=== PATIENT | female | born 1970 | race Two or more races ===

== ENCOUNTER 2020-09-05 10:55 | Emergency (ER) | payer MEDICAID ==
[~2020-09-05] VITALS: Ht 162.6 cm; Wt 91.6 kg
[~2020-09-05 10:55] MED LIST: BISA-79 RC; CHOL20004 GT; CRAN3875 GT; LEVE1000 GT; LEVE500T9 PO; MAGN400O21 GT; TYL2T GT
--- NOTE | 2020-09-05 11:10 | NUR ---
[facility]RA FRM [facility] FOR EPISTAXIS X 30 MINS. NO ACTIVE BLEEDING NOTED. PATIENT A/OXO, MOANING, NON-VERBAL, ATTACHED TO THE RECEIVING BARN CUSTODIAN, NO DISTRESS NOTED.
--- NOTE | 2020-09-05 11:11 | NUR ---
Note sidone in EDM - 09/05/20 at 1232 by RODONOVANANCES ZEFERINO [facility] FOR EPISTAXIS X 30 MINS. NO ACTIVE BLEEDING NOTED. PATIENT A/O
[2020-09-05] MEDS ORDERED: OXYMETAZOLINE HCL NASAL SPRAY 30 ML BOTTLE NS ONE (11:31)
[2020-09-05] MEDS ORDERED: PHENYLEPHRINE 0.5% NASAL SPRAY 15 ML BOTTLE NS ONE (11:32)
--- NOTE | 2020-09-05 11:50 | NUR ---
LEFT NOSTRIL PACKED BY DR. DARBY WITH RHINO PACKING, PATIENT TOLERATED WELL. RHINO SECURED WITH TAPE. PATIENT GIVEN A MASK TO PREVENT PATIENT FROM PULLING OUT THE PACKING.
--- NOTE | 2020-09-05 12:42 | NUR ---
CALLED [facility] [place] [phone] WILL CALL US WITH ETA AND WHO THE TRANSPORT WILL BE.
--- NOTE | 2020-09-05 12:52 | NUR ---
[facility] CALLED FOR TRANSPORT ETA. 1400.
--- NOTE | 2020-09-05 13:42 | NUR ---
IVANA, DAUGHTER [phone], CALLED REGARDING STATUS, TOLD US TO CALL HER BACK WHEN SHES IS BEING TRANSFERRED BACK TO FACILITY
--- NOTE | 2020-09-05 14:33 | NUR ---
PATIENT A/OXO, BREATHING EVEN AND UNLABORED, NO SOB NOTED, NASAL PACKING INTACT. REPORT GIVEN TO LINE INSTALLER TROLLEY, PAPERWORKS PROVIDED. CALLED [facility] AND GAVE REPORT. Patient discharged to SNF in stable condition. Written and verbal after care instructions given.
[2020-09-05 14:34] VITALS: BP 102/59
== END 2020-09-05 14:35 | disposition home or self-care (01) ==
LOC: ER 11:12
DX: R04.0 Epistaxis (principal); I10 Essential (primary) hypertension; Z88.8 Allergy status to other drugs, medicaments and biological substances; Z79.899 Other long term (current) drug therapy

== ENCOUNTER 2021-02-10 02:27 | Inpatient (IN) | payer MEDICAID ==
[~2021-02-10] VITALS: Ht 162.6 cm; Wt 82.6 kg
[~2021-02-10 02:27] MED LIST changes: +LEVE500T9 GT; -LEVE500T9 PO
--- NOTE | 2021-02-10 02:27 | NUR ---
[id number] C/O BLOODY EMESIS X1 HOUR. PT AAOX0, PLACED ON MONITOR, GOWNED, NOT IN ANY DSITRESS, VSS, PENDING ER PROVIDER ESTELLE
[2021-02-10] MEDS ORDERED: IV NS 0.9% 1,000 ML BAG IV ONE (03:00)
[2021-02-10] MEDS ORDERED: PANTOPRAZOLE 40 MG VIAL IV ONE (03:00)
[2021-02-10] MEDS ORDERED: ONDANSETRON HCL/PF 4 MG/2 ML VIAL IVP ONE (03:00)
[2021-02-10] MEDS ORDERED: PANTOPRAZOLE 40 MG VIAL ONE ×2 (03:05→09:30)
[2021-02-10] MEDS ORDERED: ONDANSETRON HCL/PF 4 MG/2 ML VIAL ONE (03:05)
[2021-02-10 03:22] LABS: BASOPHILS % (AUTO) 0.4 % (0.0-2.0); EOSINOPHILS % (AUTO) 0.5 % (0.0-6.0); HEMATOCRIT 30 % (33-45); LYMPHOCYTES # (AUTO) 2.3 /CMM (0.8-4.8); LYMPHOCYTES % (AUTO) 26.2 % (20.0-44.0); MEAN CORPUSCULAR HGB CONC 30 g/dl (31.0-36.0); MEAN CORPUSCULAR VOLUME 86 fL (82-100); MONOCYTES # (AUTO) 0.5 /CMM (0.1-1.30); MONOCYTES % (AUTO) 5.9 % (2.0-12.0); PLATELET COUNT (AUTO) 94 /CMM (150-450); RED BLOOD CELL COUNT(AUTO) 3.42 MIL/uL (4.0-5.2)
[2021-02-10 03:40] LABS: CALCIUM, SERUM 8.7 mg/dL (8.5-10.1); CREATININE 0.9 mg/dL (0.6-1.3); POTASSIUM 3.7 mmol/L (3.5-5.1)
[2021-02-10 03:46] LABS: ALBUMIN 2.6 g/dL (3.4-5.0); BILIRUBIN,DIRECT 0.2 mg/dL (0.0-0.2); BILIRUBIN,TOTAL 0.6 mg/dL (0.2-1.0); TOTAL PROTEIN, SERUM 7.6 g/dL (6.4-8.2)
--- NOTE | 2021-02-10 05:19 | NUR ---
PT ACCEPTED FOR ADMIT. PENDING BED ASSIGNMENT AT THIS TIME.
[2021-02-10] MEDS ORDERED: Z GUARD REMEDY 2 OZ OINT TP PRN (05:30)
[2021-02-10] MEDS ORDERED: LORAZEPAM INJ 2 MG/ML VIAL IV PRN (05:30)
[2021-02-10] MEDS ORDERED: ONDANSETRON HCL/PF 4 MG/2 ML VIAL IVP PRN (05:30)
[2021-02-10] MEDS ORDERED: MORPHINE SULFATE INJ 2 MG/ML DISP.SYRIN IV PRN (05:30)
--- NOTE | 2021-02-10 07:30 | NUR ---
ASSESSED PT ON BED AWAKE AAOX0 ,NOT IN RESPIRATORY DISTRESS, V/S STABLE, KEPT RESTED AND COMFORTABLE. WILL CONTINUE TO MONITOR.
[2021-02-10] MEDS ORDERED: ACET-2605 GT (08:18)
[2021-02-10] MEDS ORDERED: BACL10TA GT (08:18)
[2021-02-10] MEDS ORDERED: CRAN3875 GT (08:18)
[2021-02-10] MEDS ORDERED: AMIN30LI2 GT (08:18)
[2021-02-10] MEDS ORDERED: MAGN400O6 GT (08:18)
[2021-02-10] MEDS ORDERED: BISA10SU11 RC (08:18)
[2021-02-10] MEDS ORDERED: MULT9LIQ6 GT (08:18)
[2021-02-10] MEDS ORDERED: ACET-868 GT (08:18)
[2021-02-10] MEDS ORDERED: SENN-261 GT (08:18)
[2021-02-10] MEDS ORDERED: LACT-96 GT (08:18)
[2021-02-10] MEDS ORDERED: NA P133E RC (08:18)
--- NOTE | 2021-02-10 08:20 | NUR ---
PT DAUGHTER IVANA [phone]
--- NOTE | 2021-02-10 08:55 | NUR ---
LAB CALLED RAPID COVID NEGATIVE (-)
[2021-02-10] MEDS: PANTOPRAZOLE 40 MG VIAL IV SCH ×2 (09:32→22:10)
[2021-02-10] MEDS: IV NS 0.9% 1,000 ML IV PRN ×2 (09:32→22:37)
--- NOTE | 2021-02-10 12:40 | NUR ---
REPORT GIVEN TO KAY ARMSTRONG FOR NAE. WITH ONGOING IVF NORMAL SALINE.
[2021-02-10 13:00] VITALS: BP 108/48
--- NOTE | 2021-02-10 13:00 | NUR ---
RN OPENING NOTES RECEIVED PT FROM ER VIA SHARMILA. A/O X0. NONVERBAL, OPENS EYES. ON ROOM AIR SATURATING @98%. NO SOB OR ANY S/SX OF ACUTE RESPI DISTRESS. SR ON TELE MONITOR. BEDREST. L PLANTAR WOUND NOTED. PICTURE TAKEN AND PLACED IN CHART. NO PAIN OR ANY DISCOMFORT NOTED. NPO. GT CLAMPED. L HAND #20 INTACT AND PATENT WITH ONGOING NS @75MLS. INFUSING WELL. SKIN TOLD TO TOUCH. TEMP OF 94.5. PROVIDED WARM BLANKET. CALLED [facility] FOR BEAR GHISLAINEGGER. SAFETY MEASURES IN PLACE. CALL LIGHT WITHIN REACH. BED LOCKED AND AT LOWEST POSITION WITH SIDE RAILS UP X2. BED ALARM ON. WILL CONTINUE TO MONITOR.
[2021-02-10 13:15] VITALS: BP 108/48
--- NOTE | 2021-02-10 13:15 | NUR ---
RN NOTES INFORMED DR. KOROMA ABOUT THE PT ADMITTED TO ROOM 109. ASKED FOR MED RECON AND ADMITTING ORDERS.
[2021-02-10 16:00] VITALS: BP 104/70
--- NOTE | 2021-02-10 18:50 | NUR ---
RN CLOSING NOTES NO SIGNIFICANT CHANGES THROUGHOUT THE SHIFT. NO SOB. NO PAIN REPORTED AT THIS TIME. NEEDS ATTENDED. DALJIT ABDIRIZAK IN PLACE FOR LOW TEMP. PAGED DR. KOROMA FOR MED RECON AND ADMITTING ORDERS, REPLIED "I WILL DO IT". SAFETY MEASURES MAINTAINED. WILL ENDORSE TO NIGHT NURSE FOR NAE.
[2021-02-10 20:00] VITALS: BP 100/52
--- NOTE | 2021-02-10 20:00 | NUR ---
[employer] SALES REPRESENTATIVE NOTE PT IN BED AWAKE. A/O X Q. NO SOB, NO DISTRESS OR DISCOMFORT NOTED. NO S/S OF PAIN NOTED. ON TELE SR 88. GT CLAMPED. LT HAND #20G WITH IVF NS @ 75 ML/HR, NO S/S OF INFILTRATION NOTED. KEPT HER DRY AND CLEAN. ALL NEEDS ATTENDED. VSS. REPOSITION HER Q2H, CONTINUE TO MONITOR HER.
[2021-02-10] MEDS ORDERED: LEVETIRACETAM (500MG) 500 MG/5 ML VIAL IV ONE (22:54)
[2021-02-10] MEDS: LEVETIRACETAM (500MG) 1,000 MG in IV NS 0.9% 100 ML IV SCH (23:01)
[2021-02-11] VITALS: BP 118/48
[2021-02-11 04:00] VITALS: BP 111/55
[2021-02-11 05:52] LABS: BASOPHILS % (AUTO) 0.8 % (0.0-2.0); EOSINOPHILS % (AUTO) 1.8 % (0.0-6.0); HEMATOCRIT 29 % (33-45); HEMOGLOBIN 8.5 g/dL (11.5-14.8); LYMPHOCYTES # (AUTO) 2.4 /CMM (0.8-4.8); LYMPHOCYTES % (AUTO) 35.9 % (20.0-44.0); MEAN CORPUSCULAR HGB CONC 29 g/dl (31.0-36.0); MEAN CORPUSCULAR VOLUME 91 fL (82-100); MONOCYTES # (AUTO) 0.4 /CMM (0.1-1.30); MONOCYTES % (AUTO) 6.7 % (2.0-12.0); NEUTROPHILS # (AUTO) 3.6 /CMM (1.8-8.9); NEUTROPHILS % (AUTO) 54.8 % (43.0-81.0); PLATELET COUNT (AUTO) 70 /CMM (150-450); RED BLOOD CELL COUNT(AUTO) 3.23 MIL/uL (4.0-5.2); WHITE BLOOD COUNT (AUTO) 6.6 K/uL (4.3-11.0)
[2021-02-11 06:16] LABS: CREATININE 0.9 mg/dL (0.6-1.3); PHOSPHORUS 3.1 mg/dL (2.5-4.9)
--- NOTE | 2021-02-11 06:43 | NUR ---
[employer] MECHANICAL DESIGNER NOTE PT IN BED ASLEEP. NO DISTRESS OR DISCOMFORT NOTED. NO S/S OF PAIN NOTED. ON TELE SR, IVF NS @ 75 ML/HR, NO S/S OF INFILTRATION NOTED. SIDE RAILS UP X 2 AND CALL LIGHT WITHIN REACH. WILL ENDORSE TO DAY SHIFT NURSE FOR CONTINUE TO CARE.
[2021-02-11 07:01] LABS: THYROID STIMULATING HORMONE 1.317 uIU/mL (0.358-3.74)
[2021-02-11 08:00] VITALS: BP 94/40
--- NOTE | 2021-02-11 08:00 | NUR ---
PATIENT RECEIVED IN BED ON ROOM AIR. NO RESPIRATORY DISTRESS, ALERT AND ORIENTED X 0. PATIENT BED REST. PATIENT NPO WITH GT CLAMPED. PT WITH LEFT HAND 20G RUNNING NS AT 75 ML/HR. NO SIGNS OF INFECTION OR INFILTRATION. PT ALL SAFETY MEASURES IN PLACE. WILL CONTINUE TO MONITOR
[2021-02-11] MEDS: LEVETIRACETAM (500MG) 1,000 MG in IV NS 0.9% 100 ML IV SCH ×2 (09:07→21:43)
[2021-02-11] MEDS: PANTOPRAZOLE 40 MG VIAL IV SCH ×2 (09:08→21:42)
[2021-02-11] MEDS: IV 1/2NS 1000 ML 1,000 ML IV PRN (09:21)
[2021-02-11 09:30] LABS: EOSINOPHILS % (MANUAL) 1 % (0-4); LYMPHOCYTES % (MANUAL) 34 % (16-48); MONOCYTES % (MANUAL) 4 % (0-11.0); NEUTROPHILS % (MANUAL) 61 (42-76)
--- NOTE | 2021-02-11 11:00 | NUR ---
CONSENTS FOR BLOOD TRANSFUSION AND EGD CONSENT RECEIVED FROM PT FAMILY PER MD LE. PER , MAY PERFORM EGD EITHER TODAY OR TOMORROW
[2021-02-11 12:00] VITALS: BP 91/37
--- NOTE | 2021-02-11 12:00 | NUR ---
MD KOROMA NOTIFIED TO COMPLETE MED RECONCILIATION, STATED THAT HE WILL DO IT
[2021-02-11 16:00] VITALS: BP 105/50
--- NOTE | 2021-02-11 19:38 | NUR ---
PATIENT REMAINS IN BED NO ACUTE CHANGE IN CONDITION, ALL NEEDS ENDORSED TO ONCOMING RN FOR NAE
[2021-02-11 20:00] VITALS: BP 95/48
[2021-02-12] VITALS (10 sets, daily range): BP systolic 96–114; BP diastolic 42–78
[2021-02-12] MEDS: IV 1/2NS 1000 ML 1,000 ML IV PRN ×2 (00:48→09:50)
[2021-02-12 08:31] LABS: BASOPHILS % (AUTO) 0.5 % (0.0-2.0); EOSINOPHILS % (AUTO) 1.9 % (0.0-6.0); HEMATOCRIT 26 % (33-45); HEMOGLOBIN 7.4 g/dL (11.5-14.8); LYMPHOCYTES # (AUTO) 1.5 /CMM (0.8-4.8); LYMPHOCYTES % (AUTO) 41.5 % (20.0-44.0); MEAN CORPUSCULAR HGB CONC 28 g/dl (31.0-36.0); MEAN CORPUSCULAR VOLUME 92 fL (82-100); MONOCYTES # (AUTO) 0.3 /CMM (0.1-1.30); MONOCYTES % (AUTO) 7.8 % (2.0-12.0); NEUTROPHILS # (AUTO) 1.8 /CMM (1.8-8.9); NEUTROPHILS % (AUTO) 48.3 % (43.0-81.0); PLATELET COUNT (AUTO) 63 /CMM (150-450); WHITE BLOOD COUNT (AUTO) 3.7 K/uL (4.3-11.0)
[2021-02-12 08:49] LABS: ALBUMIN 2.3 g/dL (3.4-5.0); BILIRUBIN,TOTAL 0.6 mg/dL (0.2-1.0); CALCIUM, SERUM 7.6 mg/dL (8.5-10.1); CREATININE 0.8 mg/dL (0.6-1.3); POTASSIUM 3.5 mmol/L (3.5-5.1); TOTAL PROTEIN, SERUM 6.6 g/dL (6.4-8.2)
[2021-02-12] MEDS: PANTOPRAZOLE 40 MG VIAL IV SCH ×2 (09:40→21:17)
[2021-02-12] MEDS: LEVETIRACETAM (500MG) 1,000 MG in IV NS 0.9% 100 ML IV SCH ×2 (09:40→21:17)
--- NOTE | 2021-02-12 11:30 | NUR ---
message left to dr. fong regarding plan for egd since not schedule in OR ,also obtained order to transfuse 1 unit prbc,spoke with daughter howard wants to talk to anaesthesia regarding sedation to be used to her mom.[place] charge nurse in OR made aware.
--- NOTE | 2021-02-12 15:00 | NUR ---
Received order from Dr Beltre by Charge nurse for one unit of PRBC. Transfusion started and patient closely monitored ( vitals, s/sx of reaction) . No s/ss noted. Will monitor. Call light with in reach.
[2021-02-12] MEDS ORDERED: ANESTHESIA TRAY IN PYXIS 1 EA TRAY MC ONE (19:20)
--- NOTE | 2021-02-12 19:35 | NUR ---
RN NOTE PT BROUGHT TO RADIOLOGY FOR EGD. NO DISTRESS NOTED.
--- NOTE | 2021-02-12 19:52 | NUR ---
SHREDDER TENDER PEAT CLOSING NOTES Patient is alert and responsive to verbal and physical stimuli. Patient is on room air and with 02 saturation of 98%. Patient kept clean and dry. Patient is s/p one unit of PRBC and tanisha well. Patient's iv re inserted to right hand 22 gauze. Patient is noted with g tube which is clamped and abdominal binder in place. Endorse to next shift for follow up. Patient has been NPO during shift.
[2021-02-12] MEDS ORDERED: CEFTRIAXONE 1 G VIAL IM SCH (20:30)
--- NOTE | 2021-02-12 20:38 | NUR ---
RN NOTES PT CAME BACK FROM EGD. NO S/SX OF COMPLICATIONS NOTED. BP 114/69 R 18 P 81 T 97.4 O2SAT AT 99%. IV 1/2 NS RESTARTED, IV PATENT AND INTACT. PER RECOVERY NURSE MD ORDERED TO RESUME TUBE FEEDING AND ALL PREVIOUS MEDS. PT WITH NO CURRENT ORDER OF TUBE FEEDING, WILL VERIFY CHART FROM PTS NSG FACILITY. ALL SAFETY MEASURES IMPLEMENTED PER PROTOCOL. CALL LIGHT WITHIN REACH. BED LOCKED IN LOWEST POSITION.
--- NOTE | 2021-02-12 20:54 | NUR ---
MARKETING AND COMMUNICATIONS OFFICER NOTE LEFT A MESSAGE FOR DR WHEELER REGARDING TIANNAN 1G TO CLARIFY ATB ORDER IM OR IV. WAIT FOR MD TO CALL BACK.
--- NOTE | 2021-02-12 22:00 | NUR ---
HARVEST SUPERVISOR NOTE DR VASQUEZ STILL DIDN'T CALLED BACK. INFORMED NURSE TUYET CONTINUE TO FOLLOW UP.
[2021-02-12] MEDS ORDERED: JEVITY 1.2 CAL 1,000 ML BOTTLE GT PRN (23:00)
[2021-02-13] VITALS: BP 126/60
--- NOTE | 2021-02-13 00:10 | NUR ---
RN NOTE UNABLE TO GET PTS BODY TEMP. SKIN COLD TO TOUCH WITH WARM BLANKET, DALJIT HUGGER APPLIED. WILL CONTINUE TO MONITOR.
[2021-02-13] MEDS: IV 1/2NS 1000 ML 1,000 ML IV PRN (02:00)
--- NOTE | 2021-02-13 02:30 | NUR ---
RN NOTES BODY TEMP AT 96.5. REMAIN ON DALJIT HUGGER. WILL CONTINUE TO MONITOR.
[2021-02-13 04:00] VITALS: BP 118/58
[2021-02-13 06:22] LABS: BASOPHILS % (AUTO) 0.4 % (0.0-2.0); EOSINOPHILS % (AUTO) 1.7 % (0.0-6.0); HEMATOCRIT 30 % (33-45); HEMOGLOBIN 9.2 g/dL (11.5-14.8); LYMPHOCYTES # (AUTO) 1.2 /CMM (0.8-4.8); LYMPHOCYTES % (AUTO) 35.4 % (20.0-44.0); MEAN CORPUSCULAR HGB CONC 31 g/dl (31.0-36.0); MEAN CORPUSCULAR VOLUME 86 fL (82-100); MONOCYTES # (AUTO) 0.2 /CMM (0.1-1.30); MONOCYTES % (AUTO) 5.7 % (2.0-12.0); NEUTROPHILS % (AUTO) 56.8 % (43.0-81.0); PLATELET COUNT (AUTO) 52 /CMM (150-450); RED BLOOD CELL COUNT(AUTO) 3.48 MIL/uL (4.0-5.2); WHITE BLOOD COUNT (AUTO) 3.5 K/uL (4.3-11.0)
--- NOTE | 2021-02-13 06:53 | NUR ---
CLINICAL DERMATOLOGIST NOTE VERIFIED ROCEFIN ORDER WITH DR MON. GAVE NEW ORDER, ORDER NOTED AND CARRIED OUT.
[2021-02-13 07:05] LABS: ALBUMIN 2.4 g/dL (3.4-5.0); BILIRUBIN,TOTAL 0.8 mg/dL (0.2-1.0); CALCIUM, SERUM 7.8 mg/dL (8.5-10.1); CREATININE 0.7 mg/dL (0.6-1.3); MAGNESIUM 2.1 mg/dL (1.8-2.4); POTASSIUM 3.5 mmol/L (3.5-5.1); TOTAL PROTEIN, SERUM 7.1 g/dL (6.4-8.2)
[2021-02-13] MEDS ORDERED: CEFTRIAXONE 1 G in IV D5W 50 ML IV SCH (07:30)
--- NOTE | 2021-02-13 07:30 | NUR ---
HEARING THERAPIST OPENING NOTES Patient was received in bed in comfortable position. On gtube feeding running at 35 cc/hour. Iv LINE TO LEFT hand 22 gauze flushed well, and patent. No c/o pain or discomfort shown through moaning or grimacing.On room air with 02 sat 98%. Patient's bed is in lowest and locked position. Call light with in reach. Will continue to monitor.
--- NOTE | 2021-02-13 07:35 | NUR ---
RN NOTES PT REMAIN IN DALJIT HUGGER. WITH BODY TEMP OF 97. PT WITH EPISODE OF BLACK TARRY STOOL. NO BLOODY EMESIS NOTED. ROCEPHIN IV GIVEN ORDERED. GT FEEDING TOLERATING WELL, NO RESIDUAL NOTED. NO SIGNS OF ASPIRATION. KEPT HOB ELEVATED. ALL SAFETY MEASURES MAINTAINED. ENDORSED TO NEXT SHIFT NURSE FOR NAE.
[2021-02-13 08:00] VITALS: BP 112/53
[2021-02-13] MEDS: PANTOPRAZOLE 40 MG VIAL IV SCH (09:16)
[2021-02-13] MEDS ORDERED: LEVETIRACETAM SOL (5 ML) 100 MG/ML UDC GT SCH ×2 (10:01→21:00)
[2021-02-13] MEDS ORDERED: PANT40TA2 PO (11:30)
--- NOTE | 2021-02-13 15:39 | NUR ---
DISCHARGE NOTES Patient discharged to [facility] at approx 1500. No sob noted. 02 sat 98%. Vitals 98.1,100,102/70,0/10. Patient noted with one bm during shift which did not consist of any visible bleeding. Kept clean and dry. Patient transported via gurney , report given to Radha.
== END 2021-02-13 15:00 | DRG 242 ==
LOC: ER 02:31 → TRANSITION 10:45 → TELE1 12:37 → MEDSG1 02-13 07:13
PROVIDERS: ADMIT Internal Medicine; ATTEND Internal Medicine
PROC: 30233N1 Transfusion of Nonautologous Red Blood Cells into Peripheral Vein, Percutaneous Approach (ICD-10-PCS; principal; 2021-02-12)
PROC: 06L38CZ Occlusion of Esophageal Vein with Extraluminal Device, Via Natural or Artificial Opening Endoscopic (ICD-10-PCS; 2021-02-12)
DX: I85.00 Esophageal varices without bleeding (principal); D62 Acute posthemorrhagic anemia; E86.0 Dehydration; Z93.1 Gastrostomy status; I10 Essential (primary) hypertension; G93.1 Anoxic brain damage, not elsewhere classified; D64.9 Anemia, unspecified; G40.909 Epilepsy, unspecified, not intractable, without status epilepticus; K31.89 Other diseases of stomach and duodenum; Z87.820 Personal history of traumatic brain injury; F09 Unspecified mental disorder due to known physiological condition; G82.50 Quadriplegia, unspecified; Z88.8 Allergy status to other drugs, medicaments and biological substances; E86.1 Hypovolemia; E87.0 Hyperosmolality and hypernatremia; D69.6 Thrombocytopenia, unspecified; J98.11 Atelectasis; K92.0 Hematemesis; Z79.899 Other long term (current) drug therapy; Z98.890 Other specified postprocedural states; G93.40 Encephalopathy, unspecified; T68.XXXA Hypothermia, initial encounter
CPT/HCPCS: 36415; 71045-TC; 76705-TC; 80048-TC; 80053-TC; 80061-TC; 80074; 80076-TC; 83690-TC; 83735-TC; 84100-TC; 84443-TC; 84702-TC; 85025-TC; 85730-TC; 86850-TC; 87081-TC; C9113; C9803; G0378; J0696; J1953; J2405; J2704; J3490; J7030; J7060; P9016-BL; U0003